=== PATIENT | female | born 1965 | race Caucasian/White ===

== ENCOUNTER → 2016-10-07 | Outpatient (CLI) | payer MEDICAID ==
--- NOTE | 2016-10-09 08:16 | MM ---
Reason for exam: screening (asymptomatic). Last mammogram was performed 1 year and 9 months ago. History: Taking estrogen for 1 year beginning at age 48. Physical Findings: A clinical breast exam by your physician is recommended on an annual basis and results should be correlated with mammographic findings. MG Screening Mammo w CAD Bilateral CC and MLO view(s) were taken. Prior study comparison: January 07, 2015, bilateral MG screening mammo w CAD. The breast tissue is heterogeneously dense. This may lower the sensitivity of mammography. No significant changes when compared with prior studies. ASSESSMENT: Negative, BI-RAD 1 RECOMMENDATION: Routine screening mammogram of both breasts in 1 year.
== END | disposition home or self-care (01) ==
LOC: RADMAMWWP 15:42
PROVIDERS: ATTEND Obstetrics & Gynecology
DX: Z12.31 Encounter for screening mammogram for malignant neoplasm of breast (principal)

== ENCOUNTER → 2017-01-08 | Outpatient (CLI) | payer MEDICAID ==
[2017-01-08 09:18] LABS: Basophils # (A) 0.1 k/uL (0-0.2); Basophils % (A) 1 %; CH 31.1; CHCM 32.9; Eosinophils # (A) 0.5 k/uL (0-0.7); Eosinophils % (A) 7 %; HCT 41.1 % (34.0-46.0); HGB 13.1 gm/dL (11.4-16.0); Luc # (Auto) 0.27; Luc % (Auto) 4; Lymphocytes # (A) 1.7 k/uL (1.0-4.8); Lymphocytes % (A) 27 %; MCH 30.3 pg (25.0-35.0); MCV 94.9 fL (80.0-100.0); Mean Platelet Volume 6.4; Monocytes # (A) 0.3 k/uL (0-1.0); Monocytes % (A) 5 %; Neutrophils # (A) 3.6 k/uL (1.3-7.7); Neutrophils % (A) 55 %; RBC 4.33 m/uL (3.80-5.40); RDW 12.7 % (11.5-15.5); WBC 6.4 k/uL (3.8-10.6); WBC (Perox) 6.89
[2017-01-08 09:34] LABS: ALT 35 U/L (9-52); AST 23 U/L (14-36); Alkaline Phosphatase 62 U/L (38-126); Anion Gap 10 mmol/L; Blood Urea Nitrogen 9 mg/dL (7-17); Calcium 9.4 mg/dL (8.4-10.2); Carbon Dioxide 26 mmol/L (22-30); Chloride 105 mmol/L (98-107); Cholesterol 175 mg/dL (<200); Glucose 94 mg/dL (74-99); HDL Cholesterol 65 mg/dL (40-60); Non-African American GFR(MDRD) >60 (>60 ml/min/1.73 sqM); Potassium 4.3 mmol/L (3.5-5.1); Sodium 141 mmol/L (137-145); Total Bilirubin 0.6 mg/dL (0.2-1.3); Total Protein 7.2 g/dL (6.3-8.2); Triglycerides 136 mg/dL (<150)
== END | disposition home or self-care (01) ==
LOC: LABWHC1 08:32
PROVIDERS: ATTEND Family Medicine
DX: Z00.00 Encounter for general adult medical examination without abnormal findings (principal)
CPT/HCPCS: 36415; 80053; 80061; 85025

== ENCOUNTER 2017-02-02 22:26 | Emergency (ER) | payer MEDICAID ==
[2017-02-02 22:34] VITALS: TEMP 98.2
[2017-02-02 23:24] LABS: Basophils # (A) 0.1 k/uL (0-0.2); Basophils % (A) 1 %; CH 31.4; CHCM 33.5; Eosinophils # (A) 0.5 k/uL (0-0.7); Eosinophils % (A) 6 %; HCT 37.9 % (34.0-46.0); HDW 2.21; HGB 12.5 gm/dL (11.4-16.0); Luc # (Auto) 0.28; Luc % (Auto) 3; Lymphocytes # (A) 1.6 k/uL (1.0-4.8); Lymphocytes % (A) 19 %; MCHC 32.9 g/dL (31.0-37.0); MCV 94.2 fL (80.0-100.0); Mean Platelet Volume 6.7; Monocytes # (A) 0.4 k/uL (0-1.0); Monocytes % (A) 5 %; Neutrophils # (A) 5.5 k/uL (1.3-7.7); Neutrophils % (A) 66 %; RBC 4.03 m/uL (3.80-5.40); RDW 12.7 % (11.5-15.5); WBC 8.5 k/uL (3.8-10.6); WBC (Perox) 9.15
--- NOTE | 2017-02-02 23:24 | ED ---
General Adult HPI - General Chief complaint: Allergic Reaction Stated complaint: med reaction/SOB Time Seen by Provider: 02/02/17 22:42 Source: patient, RN notes reviewed Mode of arrival: wheelchair Limitations: no limitations - History of Present Illness Initial comments: 51-year-old female presents emergency Department with chief complaint of concern for medication reaction. Patient states took Mucinex night. Patient states she's had some diarrhea since then that she's noticed some spasming of her bilateral legs. Patient states she was concerned due to the symptoms so she thought that she should be seen. Patient states that she took Mucinex due to the fact that she's been having this upper respiratory like symptoms for the past few weeks. Patient denies any fever chills with this. Patient states she' s never had a feeling this before. Patient states that she has had Mucinex in the past that did create some abnormal symptoms that she does not recall what. Patient states she was concerned due to her symptoms so she thought that she should be evaluated.Patient denies any recent fever, chills, shortness of breath , chest pain, back pain, abdominal pain, nausea vomiting, numbness or tingling, dysuria or hematuria, constipation, headaches or visual changes, or any other current symptoms. - Related Data Home Medications Medication Instructions Recorded Confirmed Estrogen,Con/M-Progest Acet 1 tab PO DAILY 02/24/16 02/02/17 [Prempro 0.3 mg-1.5 mg Tablet] Meloxicam 15 mg PO DAILY 02/24/16 02/02/17 Multivitamins, Thera [Multivitamin] 1 tab PO DAILY 02/24/16 02/02/17 buPROPion HCL [Wellbutrin XL] 300 mg PO DAILY 02/24/16 02/02/17 Albuterol Sulfate [Proair Hfa] 2 puff INHALATION RT-Q6H PRN 02/02/17 02/02/17 Budesonide/Formoterol Fumarate 2 puff INHALATION RT-BID 02/02/17 02/02/17 [Symbicort 160-4.5 Mcg Inhaler] Cetirizine HCl [Zyrtec] 10 mg PO DAILY 02/02/17 02/02/17 Cyanocobalamin [Vitamin B-12] 500 mcg PO DAILY 02/02/17 02/02/17 guaiFENesin [Mucinex] 1,200 mg PO DAILY PRN 02/02/17 02/02/17 Allergies Allergy/AdvReac Type Severity Reaction Status Date / Time adhesive tape Allergy Unknown Verified 02/02/17 23:06 chocolate flavor Allergy Unknown Verified 02/02/17 23:06 Fish Containing Products Allergy Unknown Verified 02/02/17 23:06 [Fish] Milk Containing Products Allergy Unknown Verified 02/02/17 23:06 [Dairy] peach Allergy Unknown Verified 02/02/17 23:06 gluten AdvReac Nausea & Verified 02/02/17 23:06 Vomiting Review of Systems ROS Statement: Those systems with pertinent positive or pertinent negative responses have been documented in the HPI. ROS Other: All systems not noted in ROS Statement are negative. Past Medical History Past Medical History: Asthma Additional Past Medical History / Comment(s): lyme disease History of Any Multi-Drug Resistant Organisms: None Reported Past Surgical History: No Surgical Hx Reported Past Psychological History: Depression Smoking Status: Former smoker Past Alcohol Use History: Rare Past Drug Use History: None Reported General Exam - General Exam Comments Initial Comments: General: The patient is awake and alert, in no distress, and does not appear acutely ill. Eye: Pupils are equal, round and reactive to light, extra-ocular movements are intact; there is normal conjunctiva bilaterally. No signs of icterus. Ears, nose, mouth and throat: There are moist mucous membranes. Neck: The neck is supple, there is no tenderness. Cardiovascular: There is a regular rate and rhythm. No murmur, rub or gallop is appreciated. Respiratory: Lungs are clear to auscultation, respirations are non-labored, breath sounds are equal. No wheezes, stridor, rales, or rhonchi. Gastrointestinal: Soft, non-distended, non-tender abdomen without masses or organomegaly noted. There is no rebound or guarding present. No CVA tenderness. Bowel sounds are unremarkable. Back: There is no tenderness to palpation in the midline. There is no obvious deformity. No rashes noted. Musculoskeletal: Normal ROM, no tenderness, There is no pedal edema. There is no calf tenderness or swelling. Sensation intact. Pulses equal bilaterally 2+. Neurological: CN II-XII intact, There are no obvious motor or sensory deficits. Coordination appears grossly intact. Speech is normal. Skin: Skin is warm and dry and no rashes or lesions are noted. Psychiatric: Cooperative, appropriate mood & affect, normal judgment. Limitations: no limitations Course Vital Signs 02/02/17 22:30 Temperature 98.2 F Pulse Rate 98 Respiratory 20 Rate Blood Pressure 138/68 O2 Sat by Pulse 98 Oximetry Medical Decision Making - Medical Decision Making 51-year-old female presents emergency department with a chief complaint of concern for medication reaction. At this time patient's lab work is reviewed. We did inform her that her sodium is mildly low as well as her phosphorus. We did discuss close follow-up for recheck of these. We discussed her symptoms are most likely due to the medication. We discussed return parameters all the questions. She stated that she understood and she is in agreement with the plan. At this time she'll be discharged home. - Lab Data Result diagrams: 02/02/17 23:10 02/02/17 23:10 Lab Results 02/02/17 02/02/17 Range/Units 23:10 23:10 WBC 8.5 (3.8-10.6) k/uL RBC 4.03 (3.80-5.40) m/uL Hgb 12.5 (11.4-16.0) gm/dL Hct 37.9 (34.0-46.0) % MCV 94.2 (80.0-100.0) fL MCH 31.0 (25.0-35.0) pg MCHC 32.9 (31.0-37.0) g/dL RDW 12.7 (11.5-15.5) % Plt Count 334 (150-450) k/uL Neutrophils % 66 % Lymphocytes % 19 % Monocytes % 5 % Eosinophils % 6 % Basophils % 1 % Neutrophils # 5.5 (1.3-7.7) k/uL Lymphocytes # 1.6 (1.0-4.8) k/uL Monocytes # 0.4 (0-1.0) k/uL Eosinophils # 0.5 (0-0.7) k/uL Basophils # 0.1 (0-0.2) k/uL Sodium 132 L (137-145) mmol/L Potassium 3.9 (3.5-5.1) mmol/L Chloride 103 (98-107) mmol/L Carbon Dioxide 21 L (22-30) mmol/L Anion Gap 8 mmol/L BUN 11 (7-17) mg/dL Creatinine 0.83 (0.52-1.04) mg/dL Est GFR (MDRD) Af Amer >60 (>60 ml/min/1.73 sqM) Est GFR (MDRD) Non-Af >60 (>60 ml/min/1.73 sqM) Glucose 117 H (74-99) mg/dL Calcium 9.1 (8.4-10.2) mg/dL Phosphorus 2.3 L (2.5-4.5) mg/dL Magnesium 1.9 (1.6-2.3) mg/dL Total Bilirubin 0.5 (0.2-1.3) mg/dL AST 26 (14-36) U/L ALT 31 (9-52) U/L Alkaline Phosphatase 72 (38-126) U/L Total Protein 6.9 (6.3-8.2) g/dL Albumin 4.3 (3.5-5.0) g/dL Disposition Clinical Impression: Medication reaction Disposition: HOME SELF-CARE Condition: Stable Instructions: Anaphylaxis (ED) Additional Instructions: Please use medication as discussed. Please follow up with family doctor if symptoms have not improved over the next two days. Please return to the emergency room if your symptoms increase or worsen or for any other concerns. Referrals: Tavares Avila MD [Primary Care Provider] - 1-2 days Time of Disposition: 00:06
[2017-02-02 23:31] LABS: ALT 31 U/L (9-52); AST 26 U/L (14-36); Alkaline Phosphatase 72 U/L (38-126); Anion Gap 8 mmol/L; Blood Urea Nitrogen 11 mg/dL (7-17); Calcium 9.1 mg/dL (8.4-10.2); Carbon Dioxide 21 mmol/L (22-30); Chloride 103 mmol/L (98-107); Glucose 117 mg/dL (74-99); Magnesium 1.9 mg/dL (1.6-2.3); Non-African American GFR(MDRD) >60 (>60 ml/min/1.73 sqM); Phosphorous 2.3 mg/dL (2.5-4.5); Potassium 3.9 mmol/L (3.5-5.1); Sodium 132 mmol/L (137-145); Total Bilirubin 0.5 mg/dL (0.2-1.3); Total Protein 6.9 g/dL (6.3-8.2)
--- NOTE | 2017-02-02 23:54 | XR ---
EXAM: XR Chest, 2 Views CLINICAL HISTORY: Reason: cough TECHNIQUE: Frontal and lateral views of the chest. COMPARISON: No relevant prior studies available. FINDINGS: Lungs: Unremarkable. No consolidation. Pleural space: Unremarkable. No pneumothorax. Heart: Unremarkable. No cardiomegaly. Mediastinum: Mediastinal contours are within normal limits with slight aortic ectasia. Bones/joints: Normal curvature of the thoracic spine may in part be positional. IMPRESSION: No acute intrathoracic abnormality or specific etiology of the patient's cough detected.
[2017-02-03 00:09] VITALS: BP 115/68; PULSE 81; RESP 16
== END 2017-02-03 00:09 | disposition home or self-care (01) ==
LOC: EC 22:26
DX: R19.7 Diarrhea, unspecified (principal); R25.2 Cramp and spasm; T48.4X5A Adverse effect of expectorants, initial encounter; J45.909 Unspecified asthma, uncomplicated; Z87.891 Personal history of nicotine dependence; Z79.1 Long term (current) use of non-steroidal anti-inflammatories (NSAID); Z79.51 Long term (current) use of inhaled steroids; Z79.899 Other long term (current) drug therapy; Z91.011 Allergy to milk products; Z91.013 Allergy to seafood; Z91.018 Allergy to other foods; Z91.048 Other nonmedicinal substance allergy status
CPT/HCPCS: 36415; 71020; 80053; 83735; 84100; 85025; 99283

== ENCOUNTER → 2017-12-07 | Outpatient (CLI) | payer MEDICAID ==
[2017-12-07 18:17] LABS: T4, Free (Free Thyroxine) 0.69 ng/dL (0.78-2.19)
[2017-12-08 01:00] LABS: Thyroid Peroxidase Antibodies 281.4 U/mL (0.0-60.0)
[2017-12-08 01:47] LABS: Gliadin AB IgA, Unit <0.2 U/mL
[2017-12-08 02:02] LABS: Shrimp IgE <0.10 kU/L
[2017-12-08 13:59] LABS: Immunoglobulin A 85.9 mg/dL (60.0-350.0)
== END | disposition home or self-care (01) ==
LOC: LABWHC1 17:11
PROVIDERS: ATTEND Allergy & Immunology
DX: L50.8 Other urticaria (principal); K52.9 Noninfective gastroenteritis and colitis, unspecified
CPT/HCPCS: 36415; 82784; 83516; 84439; 84443; 86003; 86376; 86800

== ENCOUNTER → 2018-01-04 | Outpatient (CLI) | payer MEDICAID ==
--- NOTE | 2018-01-05 09:10 | US ---
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 TECHNIQUE: Multiple sonographic images of the thyroid gland are obtained. FINDINGS: GLAND SIZE: Right Lobe: 4.4 x 1.8 x 1.6 cm Overall Parenchyma: heterogenous Left Lobe: 4.5 x 1.5 1.3 cm Overall Parenchyma: heterogeneous Isthmus Thickness: 0.2 cm No discrete nodule is seen. Mild diffuse hyperemia. Bilateral neck scanned, no evidence of lymphadenopathy. IMPRESSION: Heterogeneous glandular parenchyma with mild diffuse hyperemia suggests thyroiditis in keeping with t he patient's Sherwin's disease. No discrete nodule.
== END | disposition home or self-care (01) ==
LOC: RADUSMAIN 17:40
PROVIDERS: ATTEND Allergy & Immunology
DX: E07.89 Other specified disorders of thyroid (principal)
CPT/HCPCS: 76536

== ENCOUNTER 2018-03-10 21:19 | Emergency (ER) | payer MEDICAID ==
[2018-03-10 21:26] VITALS: BP 162/80; PULSE 100; RESP 18; TEMP 98.6
--- NOTE | 2018-03-10 23:07 | ED ---
Extremity Problem HPI - General Chief complaint: Extremity Problem,Nontraumatic Stated complaint: Hand Pain Time Seen by Provider: 03/10/18 22:26 Source: patient, RN notes reviewed Mode of arrival: ambulatory Limitations: no limitations - History of Present Illness Initial comments: This is a 52-year-old female with past medical history of Lyme disease, Sherwin's, asthma, carpal tunnel and fibromyalgia who presents today for cc of the veins on my right hand keep dilating. Pt states that she was in the bathtub this evening and noticed the hands on her right hand only were dilated. pt states that she then noticed that every time she put her hand down they would dilate. Earlier in the day she did admit to some tingling that felt identical to when she had had previous carpal tunnel flares. Pt denies erythema of the overylying skin, trauma to the right hand, headache, chest pain, shortness of breathe, aphasia, ataxia, abnormla gait or speech, facial droop. In addition patient denies any recent fever, chills, shortness of breath, chest pain, back pain, abdominal pain, nausea or vomiting, numbness or tingling, dysuria or hematuria, constipation or diarrhea, headaches or visual changes, or any other complaints. - Related Data Home Medications Medication Instructions Recorded Confirmed Estrogen,Con/M-Progest Acet 1 tab PO DAILY 02/24/16 03/10/18 [Prempro 0.3 mg-1.5 mg Tablet] Meloxicam 15 mg PO DAILY 02/24/16 03/10/18 Multivitamins, Thera [Multivitamin] 1 tab PO DAILY 02/24/16 03/10/18 buPROPion HCL [Wellbutrin XL] 300 mg PO DAILY 02/24/16 03/10/18 Albuterol Sulfate [Proair Hfa] 2 puff INHALATION RT-Q6H PRN 02/02/17 03/10/18 Budesonide/Formoterol Fumarate 2 puff INHALATION RT-BID 02/02/17 03/10/18 [Symbicort 160-4.5 Mcg Inhaler] Cetirizine HCl [Zyrtec] 10 mg PO DAILY 02/02/17 03/10/18 Cyanocobalamin [Vitamin B-12] 500 mcg PO DAILY 05/30/17 07/05/18 guaiFENesin [Mucinex] 1,200 mg PO DAILY PRN 02/02/17 03/10/18 Allergies Allergy/AdvReac Type Severity Reaction Status Date / Time adhesive tape Allergy Unknown Verified 03/10/18 21:26 chocolate flavor Allergy Unknown Verified 03/10/18 21:26 Fish Containing Products Allergy Unknown Verified 03/10/18 21:26 [Fish] Milk Containing Products Allergy Unknown Verified 03/10/18 21:26 [Dairy] peach Allergy Unknown Verified 03/10/18 21:26 gluten AdvReac Nausea & Verified 03/10/18 21:26 Vomiting Review of Systems ROS Statement: Those systems with pertinent positive or pertinent negative responses have been documented in the HPI. ROS Other: All systems not noted in ROS Statement are negative. Constitutional: Denies: fever, chills, weakness, weight change ENT: Denies: dental pain Respiratory: Denies: cough, dyspnea Cardiovascular: Denies: chest pain, palpitations Endocrine: Denies: fatigue Gastrointestinal: Denies: abdominal pain, nausea, vomiting, diarrhea, constipation Genitourinary: Denies: urgency, dysuria, frequency Musculoskeletal: Denies: back pain, joint swelling Skin: Reports: as per HPI. Denies: rash, lesions Past Medical History Past Medical History: Asthma Additional Past Medical History / Comment(s): lyme disease History of Any Multi-Drug Resistant Organisms: None Reported Past Surgical History: No Surgical Hx Reported Past Psychological History: Depression Smoking Status: Former smoker Past Alcohol Use History: Occasional Past Drug Use History: None Reported General Exam - General Exam Comments Initial Comments: General: The patient is awake and alert, in no distress, and does not appear acutely ill. Eye: Pupils are equal, round and reactive to light, extra-ocular movements are intact. No nystagmus. There is normal conjunctiva bilaterally. No signs of icterus. Ears, nose, mouth and throat: There are moist mucous membranes and no oral lesions. Cardiovascular: There is a regular rate and rhythm. No murmur, rub or gallop is appreciated. Respiratory: Lungs are clear to auscultation, respirations are non-labored, breath sounds are equal. No wheezes, stridor, rales, or rhonchi. Gastrointestinal: [Soft, non-distended, non-tender abdomen without masses or organomegaly noted. There is no rebound or guarding present. ] Musculoskeletal: No erythema, lesions, or masses of the dorsum of the b/l. Strength 5/5. Sensation intact. Pulses equal bilaterally 2+. Full ROM, sensation and muscle strength of the wrists b/l. Negative tinels. Normal examination of the UE b/l. There are dialted veins of the right hand, but this decreases with elevation. Neurological: A&O x 3. CN II-XII intact, There are no obvious motor or sensory deficits. Coordination appears grossly intact. Speech is normal. Skin: Skin is warm and dry and no rashes or lesions are noted. Psychiatric: Cooperative, appropriate mood & affect, normal judgment. Limitations: no limitations Course Vital Signs 03/10/18 21:24 Temperature 98.6 F Pulse Rate 100 Respiratory 18 Rate Blood Pressure 162/80 O2 Sat by Pulse 97 Oximetry Medical Decision Making - Medical Decision Making physical examination of the hands, and wrist b/l are WNL. Pt does have more vein dilation of the right dorsum than the left. However, there is no knots, overlying erythema or edema. negative tinels. Neurological examination and the remainder of the physical examination WNL. Pt will be discharged with reassurance and was encourage to f/u with her PCP if this does not resolve. Pt was encouraged to return to the emergency department if symptoms change or worsen. Case was discussed wtih Dr. Retana and pt was discharged in stable condition. Disposition Clinical Impression: Neuropathic pain of right hand Disposition: HOME SELF-CARE Condition: Good Is patient prescribed a controlled substance at d/c from ED?: No Referrals: Tavares Avila MD [Primary Care Provider] - 1-2 days Time of Disposition: 23:07
== END 2018-03-10 23:15 | disposition home or self-care (01) ==
LOC: EC 21:19
DX: G62.9 Polyneuropathy, unspecified (principal); M79.7 Fibromyalgia; J45.909 Unspecified asthma, uncomplicated; Z87.891 Personal history of nicotine dependence; Z79.3 Long term (current) use of hormonal contraceptives; Z79.1 Long term (current) use of non-steroidal anti-inflammatories (NSAID); Z79.899 Other long term (current) drug therapy; Z91.018 Allergy to other foods; Z91.013 Allergy to seafood; Z91.011 Allergy to milk products; Z91.048 Other nonmedicinal substance allergy status
CPT/HCPCS: 99283

== ENCOUNTER → 2018-04-18 | Outpatient (CLI) | payer MEDICAID ==
[2018-04-18 18:36] LABS: T4, Free (Free Thyroxine) 0.79 ng/dL (0.78-2.19)
== END | disposition home or self-care (01) ==
LOC: LABWHC1 17:14
PROVIDERS: ATTEND Family Medicine
DX: E06.3 Autoimmune thyroiditis (principal)
CPT/HCPCS: 36415; 84439; 84443; 84481

== ENCOUNTER → 2018-09-26 | Outpatient (CLI) | payer MEDICAID ==
--- NOTE | 2018-10-01 11:28 | MM ---
Reason for exam: screening (asymptomatic). Last mammogram was performed 2 years ago. History: Taking estrogen for 1 year beginning at age 48. MG Screening Mammo w CAD Bilateral CC and MLO view(s) were taken. Prior study comparison: October 07, 2016, bilateral MG screening mammo w CAD. January 07, 2015, bilateral MG screening mammo w CAD. The breast tissue is heterogeneously dense. This may lower the sensitivity of mammography. There is stable asymmetric breast tissue in the left upper breast. No discrete abnormality. ASSESSMENT: Negative, BI-RAD 1 RECOMMENDATION: Routine screening mammogram of both breasts in 1 year.
== END | disposition home or self-care (01) ==
LOC: RADMAMWWP 06:49
PROVIDERS: ATTEND Family Medicine
DX: Z12.31 Encounter for screening mammogram for malignant neoplasm of breast (principal)
CPT/HCPCS: 77067

== ENCOUNTER → 2019-03-25 | Outpatient (CLI) | payer MEDICAID ==
[2019-03-25 10:20] LABS: Amorphous Sediment,Urine Few /hpf; Appearance,Urine Cloudy (Clear); Bacteria,Urine Rare /hpf; Bilirubin,Urine Negative (Negative); Blood,Urine Negative (Negative); Color,Urine Yellow; Glucose,Urine (UA) Negative (Negative); Ketones,Urine Negative (Negative); Leukocyte Esterase,Urine Large (Negative); Mucus,Urine Few /hpf; Nitrite,Urine Negative (Negative); PH, Urine 7.5 (5.0-8.0); Protein,Urine Trace (Negative); RBC,Urine 1 /hpf (0-5); Specific Gravity,Urine 1.022 (1.001-1.035); Squamous Epithelial Cell,Urine 13 /hpf (0-4); Urobilinogen,Urine <2.0 mg/dL (<2.0); WBC,Urine 43 /hpf (0-5)
[2019-03-25 10:21] LABS: HCT 40.8 % (34.0-46.0); HGB 13.5 gm/dL (11.4-16.0); MCH 30.6 pg (25.0-35.0); MCHC 33.1 g/dL (31.0-37.0); Mean Platelet Volume 7.2; Platelet Count 360 k/uL (150-450); RBC 4.43 m/uL (3.80-5.40); RDW 13.2 % (11.5-15.5)
[2019-03-25 10:22] LABS: MCV 92.3 fL (80.0-100.0)
[2019-03-25 18:57] LABS: African American GFR (CKD) 84.6 (60.0-200.0); Albumin 4.5 g/dL (3.80-4.90); Albumin/Globulin Ratio 2.65 (1.60-3.17); Anion Gap 8.3 mmol/L (4.00-12.00); BUN/Creat Ratio 14.44 Ratio (12.00-20.00); Calcium 9.4 mg/dL (8.7-10.3); Carbon Dioxide 23.7 mmol/L (21.6-31.8); Globulin 1.7 g/dL (1.6-3.3); LDL Cholesterol,Calculated 75.2 mg/dL (0.0-131.0); Potassium 4.3 mmol/L (3.5-5.5); Total Bilirubin 0.5 mg/dL (0.3-1.2); Total Protein 6.2 g/dL (6.2-8.2); VLDL Calculation 32.8 mg/dL (5.00-40.00)
[2019-03-25 19:05] LABS: T4, Free (Free Thyroxine) 0.9 ng/dL (0.80-1.80)
== END | disposition home or self-care (01) ==
LOC: LABWHC1 09:48
PROVIDERS: ATTEND Family Medicine
DX: Z00.00 Encounter for general adult medical examination without abnormal findings (principal); E03.9 Hypothyroidism, unspecified
CPT/HCPCS: 36415; 80053; 80061; 81001; 84439; 84443; 84481; 85027

== ENCOUNTER → 2020-03-08 | Outpatient (CLI) | payer OTHER ==
[2020-03-08 10:33] LABS: HCT 40.5 % (34.0-46.0); MCH 30.9 pg (25.0-35.0); MCHC 32.1 g/dL (31.0-37.0); MCV 96.1 fL (80.0-100.0); Platelet Count 291 k/uL (150-450); RBC 4.21 m/uL (3.80-5.40); RDW 12.9 % (11.5-15.5); WBC 7.2 k/uL (3.8-10.6)
[2020-03-08 15:36] LABS: African American GFR (CKD) 96.9 (60.0-200.0); Albumin 4.2 g/dL (3.80-4.90); Albumin/Globulin Ratio 2.47 (1.60-3.17); Anion Gap 5.6 mmol/L (4.00-12.00); BUN/Creat Ratio 13.75 Ratio (12.00-20.00); Carbon Dioxide 25.4 mmol/L (21.6-31.8); Chol/HDL Ratio 2.54; Globulin 1.7 g/dL (1.6-3.3); LDL Cholesterol,Calculated 69.2 mg/dL (0.0-131.0); Non-African American GFR(CKD) 83.6 (60.0-200.0); Potassium 4.3 mmol/L (3.5-5.5); Total Bilirubin 0.6 mg/dL (0.2-1.2); Total Protein 5.9 g/dL (6.2-8.2); VLDL Calculation 27.8 mg/dL (5.00-40.00)
== END | disposition home or self-care (01) ==
LOC: LABWHC1 08:54
PROVIDERS: ATTEND Family Medicine
DX: Z00.00 Encounter for general adult medical examination without abnormal findings (principal)
CPT/HCPCS: 36415; 80053; 80061; 85027

== ENCOUNTER → 2020-04-30 | Outpatient (CLI) | payer OTHER | END | disposition home or self-care (01) | LOC: LABWHC1 07:00 | PROVIDERS: ATTEND Family Medicine | DX: E06.3 Autoimmune thyroiditis (principal) | CPT/HCPCS: 36415; 84443; 84481 ==

== ENCOUNTER → 2021-01-02 | Outpatient (CLI) | payer OTHER ==
[2021-01-02 20:55] LABS: Albumin 4.9 g/dL (3.80-4.90); Albumin/Globulin Ratio 2.88 (1.60-3.17); Bilirubin, Conjugated 0.2 mg/dL (0.20-0.40); Bilirubin,Unconjugated 0.4 mg/dL; Chol/HDL Ratio 3.02; Globulin 1.7 g/dL (1.6-3.3); LDL Cholesterol,Calculated 85.2 mg/dL (0.0-131.0); Total Bilirubin 0.6 mg/dL (0.3-1.2); Total Protein 6.6 g/dL (6.2-8.2); VLDL Calculation 25.8 mg/dL (5.00-40.00)
== END | disposition home or self-care (01) ==
LOC: LABWHC1 06:53
PROVIDERS: ATTEND Internal Medicine Cardiovascular Disease
DX: E78.2 Mixed hyperlipidemia (principal); Z82.49 Family history of ischemic heart disease and other diseases of the circulatory system
CPT/HCPCS: 36415; 80061; 80076

== ENCOUNTER 2021-01-05 22:10 | Emergency (ER) | payer OTHER ==
--- NOTE | 2021-01-05 22:48 | ED ---
Arrhythmia/Palpitations HPI - General Stated Complaint: AFib Time Seen by Provider: 01/05/21 22:47 Source: patient - History of Present Illness Initial Comments: patient is a 55-year-old woman who presents with days of intermittent palpitations and anxiety associated. Patient has had some workup already, including reportedly having a stress test and a Holter monitor. Patient's symptoms recurred tonight. She notes that her heart will race, but she has not had meño chest pain. No anginal symptoms. She does note that she is under a lot of stress at home. MD Complaint: rapid heart beat -: days(s) Context: occurred during rest Associated Symptoms: anxiety - Related Data Home Medications Medication Instructions Recorded Confirmed Estrogen,Con/M-Progest Acet 1 tab PO DAILY 02/24/16 03/10/18 [Prempro 0.3 mg-1.5 mg Tablet] Meloxicam 15 mg PO DAILY 02/24/16 03/10/18 Multivitamins, Thera [Multivitamin] 1 tab PO DAILY 02/24/16 03/10/18 buPROPion HCL [Wellbutrin XL] 300 mg PO DAILY 02/24/16 03/10/18 Albuterol Sulfate [Proair Hfa] 2 puff INHALATION RT-Q6H PRN 02/02/17 03/10/18 Budesonide/Formoterol Fumarate 2 puff INHALATION RT-BID 02/02/17 03/10/18 [Symbicort 160-4.5 Mcg Inhaler] Cetirizine HCl [Zyrtec] 10 mg PO DAILY 02/02/17 03/10/18 Cyanocobalamin [Vitamin B-12] 500 mcg PO DAILY 02/02/17 03/10/18 guaiFENesin [Mucinex] 1,200 mg PO DAILY PRN 02/02/17 03/10/18 Previous Rx's Medication Instructions Recorded Metoprolol Tartrate [Lopressor] 12.5 mg PO BID #30 dose 01/06/21 Allergies Allergy/AdvReac Type Severity Reaction Status Date / Time adhesive tape Allergy Unknown Verified 01/05/21 22:51 chocolate flavor Allergy Unknown Verified 01/05/21 22:51 Fish Containing Products Allergy Unknown Verified 01/05/21 22:51 [Fish] Milk Containing Products Allergy Unknown Verified 01/05/21 22:51 [Dairy] peach Allergy Unknown Verified 01/05/21 22:51 gluten AdvReac Nausea & Verified 01/05/21 22:51 Vomiting Review of Systems ROS Statement: Those systems with pertinent positive or pertinent negative responses have been documented in the HPI. ROS Other: All systems not noted in ROS Statement are negative. Constitutional: Denies: fever, chills Respiratory: Denies: cough, dyspnea Cardiovascular: Reports: palpitations. Denies: chest pain, edema, syncope Gastrointestinal: Denies: abdominal pain, nausea, vomiting Genitourinary: Denies: dysuria, hematuria Musculoskeletal: Denies: back pain Skin: Denies: rash Neurological: Denies: headache, weakness, numbness Past Medical History Past Medical History: Asthma Additional Past Medical History / Comment(s): lyme disease History of Any Multi-Drug Resistant Organisms: None Reported Past Surgical History: No Surgical Hx Reported Past Psychological History: Depression Past Alcohol Use History: Occasional Past Drug Use History: None Reported General Exam General appearance: alert, in no apparent distress Head exam: Present: atraumatic, normocephalic Eye exam: Present: normal appearance. Absent: scleral icterus, conjunctival injection Neck exam: Present: normal inspection, full ROM Respiratory exam: Present: normal lung sounds bilaterally. Absent: respiratory distress, wheezes, rales, rhonchi, stridor Cardiovascular Exam: Present: regular rate, normal rhythm, normal heart sounds. Absent: systolic murmur, diastolic murmur, rubs, gallop GI/Abdominal exam: Present: soft. Absent: distended, tenderness, guarding, rebound, rigid, mass Extremities exam: Present: normal inspection, normal capillary refill. Absent: pedal edema, calf tenderness Back exam: Present: normal inspection Neurological exam: Present: alert Psychiatric exam: Present: anxious Skin exam: Present: warm, dry, intact, normal color. Absent: rash Course Vital Signs 01/05/21 01/06/21 22:54 00:02 Temperature 98.3 F Pulse Rate 80 90 Respiratory 18 16 Rate Blood Pressure 131/89 145/93 O2 Sat by Pulse 98 98 Oximetry EKG Findings - EKG Results: EKG: interpreted by ERMD, sinus rhythm (with premature supraventricular com plexes, rate 83 bpm), normal axis, normal QRS - Blocks, [place], Hypertrophy, ST Abn: Repolarization changes or abnormalities: nonspecific abnormality, ST segment, and/or T wave Medical Decision Making - Lab Data Result diagrams: 01/05/21 22:49 01/05/21 22:49 Lab Results 01/05/21 01/05/21 01/05/21 Range/Units 22:49 22:49 22:49 WBC 8.7 (3.8-10.6) k/uL RBC 4.49 (3.80-5.40) m/uL Hgb 14.0 (11.4-16.0) gm/dL Hct 41.0 (34.0-46.0) % MCV 91.2 (80.0-100.0) fL MCH 31.3 (25.0-35.0) pg MCHC 34.3 (31.0-37.0) g/dL RDW 12.6 (11.5-15.5) % Plt Count 356 (150-450) k/uL MPV 7.1 Neutrophils % 64 % Lymphocytes % 24 % Monocytes % 8 % Eosinophils % 2 % Basophils % 1 % Neutrophils # 5.6 (1.3-7.7) k/uL Lymphocytes # 2.1 (1.0-4.8) k/uL Monocytes # 0.7 (0-1.0) k/uL Eosinophils # 0.2 (0-0.7) k/uL Basophils # 0.1 (0-0.2) k/uL PT 10.3 (9.0-12.0) sec INR 1.0 (<1.2) APTT 22.5 (22.0-30.0) sec Sodium 136 L (137-145) mmol/L Potassium 4.1 (3.5-5.1) mmol/L Chloride 105 (98-107) mmol/L Carbon Dioxide 21 L (22-30) mmol/L Anion Gap 10 mmol/L BUN 12 (7-17) mg/dL Creatinine 0.72 (0.52-1.04) mg/dL Est GFR (CKD-EPI)AfAm >90 (>60 ml/min/1.73 sqM) Est GFR (CKD-EPI)NonAf >90 (>60 ml/min/1.73 sqM) Glucose 120 H (74-99) mg/dL Calcium 9.7 (8.4-10.2) mg/dL Magnesium 2.1 (1.6-2.3) mg/dL Total Bilirubin 0.7 (0.2-1.3) mg/dL AST 30 (14-36) U/L ALT 16 (4-34) U/L Alkaline Phosphatase 70 (38-126) U/L Troponin I (0.000-0.034) ng/mL Total Protein 7.2 (6.3-8.2) g/dL Albumin 4.6 (3.5-5.0) g/dL TSH 4.030 (0.465-4.680) mIU/L 01/05/21 Range/Units 22:49 WBC (3.8-10.6) k/uL RBC (3.80-5.40) m/uL Hgb (11.4-16.0) gm/dL Hct (34.0-46.0) % MCV (80.0-100.0) fL MCH (25.0-35.0) pg MCHC (31.0-37.0) g/dL RDW (11.5-15.5) % Plt Count (150-450) k/uL MPV Neutrophils % % Lymphocytes % % Monocytes % % Eosinophils % % Basophils % % Neutrophils # (1.3-7.7) k/uL Lymphocytes # (1.0-4.8) k/uL Monocytes # (0-1.0) k/uL Eosinophils # (0-0.7) k/uL Basophils # (0-0.2) k/uL PT (9.0-12.0) sec INR (<1.2) APTT (22.0-30.0) sec Sodium (137-145) mmol/L Potassium (3.5-5.1) mmol/L Chloride (98-107) mmol/L Carbon Dioxide (22-30) mmol/L Anion Gap mmol/L BUN (7-17) mg/dL Creatinine (0.52-1.04) mg/dL Est GFR (CKD-EPI)AfAm (>60 ml/min/1.73 sqM) Est GFR (CKD-EPI)NonAf (>60 ml/min/1.73 sqM) Glucose (74-99) mg/dL Calcium (8.4-10.2) mg/dL Magnesium (1.6-2.3) mg/dL Total Bilirubin (0.2-1.3) mg/dL AST (14-36) U/L ALT (4-34) U/L Alkaline Phosphatase (38-126) U/L Troponin I <0.012 (0.000-0.034) ng/mL Total Protein (6.3-8.2) g/dL Albumin (3.5-5.0) g/dL TSH (0.465-4.680) mIU/L Disposition Clinical Impression: Palpitations Disposition: HOME SELF-CARE Condition: Good Instructions (If sedation given, give patient instructions): Heart Palpitations (ED) Prescriptions: Metoprolol Tartrate [Lopressor] 12.5 mg PO BID #30 dose Is patient prescribed a controlled substance at d/c from ED?: No Referrals: Tavares Avila MD [Primary Care Provider] - 1-2 days
[2021-01-05 22:58] VITALS: TEMP 98.3
[2021-01-05 23:05] LABS: Basophils # (A) 0.1 k/uL (0-0.2); Basophils % (A) 1 %; Eosinophils # (A) 0.2 k/uL (0-0.7); Eosinophils % (A) 2 %; Lymphocytes # (A) 2.1 k/uL (1.0-4.8); Lymphocytes % (A) 24 %; MCH 31.3 pg (25.0-35.0); MCHC 34.3 g/dL (31.0-37.0); MCV 91.2 fL (80.0-100.0); Mean Platelet Volume 7.1; Monocytes # (A) 0.7 k/uL (0-1.0); Monocytes % (A) 8 %; Neutrophils # (A) 5.6 k/uL (1.3-7.7); Neutrophils % (A) 64 %; Platelet Count 356 k/uL (150-450); RBC 4.49 m/uL (3.80-5.40); RDW 12.6 % (11.5-15.5); WBC 8.7 k/uL (3.8-10.6)
[2021-01-05 23:22] LABS: Partial Thromboplastin Time 22.5 sec (22.0-30.0); Prothrombin Time 10.3 sec (9.0-12.0)
[2021-01-05 23:26] LABS: ALT 16 U/L (4-34); African American GFR (CKD) >90 (>60 ml/min/1.73 sqM); Anion Gap 10 mmol/L; Blood Urea Nitrogen 12 mg/dL (7-17); Calcium 9.7 mg/dL (8.4-10.2); Carbon Dioxide 21 mmol/L (22-30); Chloride 105 mmol/L (98-107); Glucose 120 mg/dL (74-99); Non-African American GFR(CKD) >90 (>60 ml/min/1.73 sqM); Sodium 136 mmol/L (137-145); Total Bilirubin 0.7 mg/dL (0.2-1.3)
--- NOTE | 2021-01-05 23:47 | XR ---
EXAMINATION TYPE: XR chest 2V DATE OF EXAM: 01/05/2021 COMPARISON: 02/02/2017 HISTORY: Dysrhythmia There is no heart failure nor confluent pneumonic infiltrate. Costophrenic angles are clear. Heart s ize is normal. There are chest leads. Bony thorax is intact. IMPRESSION: No active cardiopulmonary disease. No change.
[2021-01-06 00:03] VITALS: BP 145/93; RESP 16
[2021-01-06 00:07] LABS: AST 30 U/L (14-36); Albumin 4.6 g/dL (3.5-5.0); Alkaline Phosphatase 70 U/L (38-126); Magnesium 2.1 mg/dL (1.6-2.3); Potassium 4.1 mmol/L (3.5-5.1); Total Protein 7.2 g/dL (6.3-8.2)
[2021-01-06 00:58] VITALS: PULSE 78
== END 2021-01-06 01:31 | disposition home or self-care (01) ==
LOC: EC 22:10
DX: R00.2 Palpitations (principal); F32.9 Major depressive disorder, single episode, unspecified; I48.91 Unspecified atrial fibrillation; J45.909 Unspecified asthma, uncomplicated
CPT/HCPCS: 36415; 71046; 80053; 83735; 84443; 84484; 85025; 85610; 85730; 93005; 99285

== ENCOUNTER → 2021-01-30 | Outpatient (CLI) | payer OTHER ==
--- NOTE | 2021-01-31 07:47 | MM ---
Reason for exam: screening (asymptomatic). Last mammogram was performed 2 years and 4 months ago. History: Taking estrogen for 1 year beginning at age 48. Physical Findings: A clinical breast exam by your physician is recommended on an annual basis and results should be correlated with mammographic findings. MG Screening Mammo w CAD Bilateral CC and MLO view(s) were taken. Prior study comparison: September 26, 2018, bilateral MG screening mammo w CAD. October 07, 2016, bilateral MG screening mammo w CAD. The breast tissue is heterogeneously dense. This may lower the sensitivity of mammography. No significant changes when compared with prior studies. ASSESSMENT: Benign, BI-RAD 2 RECOMMENDATION: Routine screening mammogram of both breasts in 1 year.
== END | disposition home or self-care (01) ==
LOC: RADMAMWWP 09:09
PROVIDERS: ATTEND Family Medicine
DX: Z12.39 Encounter for other screening for malignant neoplasm of breast (principal)
CPT/HCPCS: 77067

== ENCOUNTER → 2021-07-11 | Outpatient (CLI) | payer OTHER ==
[2021-07-11 11:07] VITALS: BP 122/82; PULSE 67; RESP 16; TEMP 98.3
--- NOTE | 2021-07-11 11:42 | P.GSHP ---
History of Present Illness H&P Date: 07/11/21 Chief Complaint: left breast discharge Muna is a 55 year old white female seen in consultation for Dr. Avila regarding left nipple discharge. Abut one month ago she felt perimenopausal symptoms and noted left nipple discharge at that time. She had a bilateral mammogram on 01-30-21 which was benign BIRAD 2. She has not had any bloody nipple discharge. She has no right nipple discharge. She has had the intermittent left nipple discharge for many years. She is not complaining of any lumps masses or nodules in her breast. The last time she had nipple discharge was approximately 1 month ago it does happen spontaneously at times, this seems yellow to the patient. She notices it on her clothes. She has never had any breast surgery. She takes prempro and has been on that for 10 years. Caffeine: 2 cups/day down from 5 cups/day in December 2020 nicotine: none; stopped 20 years ago, used to smoke 1/PPD for 15 years; father heavy smoker as she was growing up BCP: 1 year; prempro 10 years chocolate: weekly Family history: Mother: Pancreatic cancer Father: Lung cancer he was a smoker Brother: Testicular cancer Hormonal History: menarche: 15 , breast fed: no; age at : 20 menopause: 50 prempro: present user 10 years; BCP: 1 year many years ago Surgical History: none Medical History: [place] Disease 32 years ago asthma Sherwin's thyroiditis Fibromyalgia depression/anxiety scolioses Social History: smoke: former alcohol: occasional drugs: none - Constitutional Constitutional: Denies chills, Denies fever - EENT Eyes: denies blurred vision, denies pain Ears: bilateral: tinnitus, deny: decreased hearing Ears, nose, mouth and throat: Denies headache, Denies sore throat - Breasts Breasts: bilateral: as per HPI - Cardiovascular Cardiovascular: Denies chest pain, Denies shortness of breath - Respiratory Respiratory: Reports as per HPI - Gastrointestinal Gastrointestinal: Denies abdominal pain, Denies diarrhea, Denies nausea, Denies vomiting - Genitourinary (Female) Genitourinary: Denies dysuria, Denies hematuria - Menstruation Menstruation: Reports postmenopausal - Musculoskeletal Musculoskeletal: Denies myalgias - Integumentary Comment: chronic hives - Neurological Neurological: Denies numbness, Denies weakness - Psychiatric Psychiatric: Reports as per HPI, Reports anxiety, Reports depression - Endocrine Endocrine: Reports as per HPI - Hematologic/Lymphatic Comment: none - Allergic/Immunologic Allergic/Immunologic: Reports seasonal allergies Past Medical History Past Medical History: Asthma Additional Past Medical History / Comment(s): lyme disease History of Any Multi-Drug Resistant Organisms: None Reported Past Surgical History: No Surgical Hx Reported Past Psychological History: Depression Smoking Status: Never smoker Past Alcohol Use History: Occasional Past Drug Use History: None Reported Medications and Allergies Home Medications Medication Instructions Recorded Confirmed Type Estrogen,Con/M-Progest Acet 1 tab PO DAILY 02/24/16 07/11/21 History [Prempro 0.3 mg-1.5 mg Tablet] Multivitamins, Thera [Multivitamin] 1 tab PO DAILY 02/24/16 07/11/21 History Metoprolol Tartrate [Lopressor] 12.5 mg PO BID #30 dose 01/06/21 07/11/21 Rx Cetirizine HCl [Zyrtec] 10 mg PO DAILY 07/11/21 07/11/21 History HYDROcodone/APAP 5-325MG [[place] 1 tab PO Q6HR PRN 07/11/21 07/11/21 History 5-325] Levothyroxine Sodium [Synthroid] 25 mcg PO DAILY 07/11/21 07/11/21 History Meloxicam [Mobic] 7.5 mg PO DAILY 07/11/21 07/11/21 History busPIRone HCL [Buspar] 7.5 mg PO DAILY 07/11/21 07/11/21 History Allergies Allergy/AdvReac Type Severity Reaction Status Date / Time adhesive tape Allergy Unknown Verified 07/11/21 10:59 chocolate flavor Allergy Unknown Verified 07/11/21 10:59 Fish Containing Products Allergy Unknown Verified 07/11/21 10:59 [Fish] Milk Containing Products Allergy Unknown Verified 07/11/21 10:59 [Dairy] peach Allergy Unknown Verified 07/11/21 10:59 gluten AdvReac Nausea & Verified 07/11/21 10:59 Vomiting levalbuterol [From Xopenex] AdvReac Confusion Unverified 07/11/21 10:59 Surgical - Exam Vital Signs Temp Pulse Resp BP Pulse Ox 98.3 F 67 16 122/82 99 07/11/21 11:04 07/11/21 11:04 07/11/21 11:04 07/11/21 11:04 07/11/21 11:04 BMI 27.9 - General no distress - Eyes normal ocular movement - ENT normal nares - Neck trachea midline - Respiratory normal respiratory effort, clear to auscultation - Cardiovascular Rhythm: regular Heart Sounds: normal: S1, S2 - Abdomen Abdomen: soft - Integumentary normal turgor - Neurologic no disoriented, no combative - Musculoskeletal normal gait - Psychiatric oriented to time, oriented to person, oriented to place, speech is normal, memory intact Breast Exam: BRA: 36D inspection: Left breast larger than right breast, lateral grade 3 ptosis Palpation: Right breast: Multiple positional exam fibrocystic changes no dominant masses or nodules of concern Right axilla: No adenopathy of concern Left breast: Multiple positional exam fibrocystic changes no dominant masses or nodules of concern no nipple discharge on either side at this time Left axilla: No adenopathy of concern Results Bilateral mammogram [id number] benign Assessment and Plan Assessment: Impression: 1. Asymmetry of the breast 2. Fibrocystic breast changes 3. Bilateral Bio-Rad to mammogram from [id number] 4. Left breast nipple discharge chronic intermittent for many years nonbloody appears fibrocystic 5. Patient on Prempro 6. 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 Plan: 1. Patient is going to try to decrease Prempro 2. Repeat bilateral mammogram January 25 3. Follow-up after bilateral mammogram 4. Patient understands that if the nipple discharge becomes bloody or more frequent and is spontaneous then she will call us CC: Dr. Avila
== END ==
LOC: WWCWWP 10:49
PROVIDERS: ATTEND Surgery
DX: Z53.9 Procedure and treatment not carried out, unspecified reason (principal)

== ENCOUNTER → 2023-02-02 | Outpatient (CLI) | payer BC ==
--- NOTE | 2023-02-03 19:10 | MM ---
Reason for Exam: Screening (asymptomatic). Last mammogram was performed 2 year(s) and 0 month(s) ago. Patient History: Menarche at age 14. First Full-Term at age 20. Postmenopausal. Currently using Estrogen, beginning at age 48 for 3 years. Risk Values: Cecille 5 year model risk: 1.0%. NCI Lifetime model risk: 6.5%. Prior Study Comparison: 10/07/2016 Bilateral Screening Mammogram, [facility]. 09/26/2018 Bilateral Screening Mammogram, [facility]. 01/30/2021 Bilateral Screening Mammogram, [facility]. Tissue Density: There are scattered fibroglandular densities. Findings: Analyzed By CAD. Chronic nodularity lower quadrant left breast. There is no suspicious group of microcalcifications or new suspicious mass in either breast. Overall Assessment: Benign, BI-RAD 2 Management: Screening Mammogram of both breasts in 1 year. . Patient should continue monthly self-breast exams. A clinical breast exam by your physician is recommended on an annual basis. This exam should not preclude additional follow-up of suspicious palpable abnormalities. Note on Cecille scores and lifetime risk: 1. A Cecille score greater than 3% is considered moderate risk. If this is the case, consider specialist referral to assess eligibility for a risk reducing agent. 2. If overall lifetime risk for the development of breast cancer is 20% or higher, the patient may qualify for future screening with alternating mammogram and breast MRI. Electronically signed and approved by: Iris Booker M.D. Radiologist
== END | disposition home or self-care (01) ==
LOC: RADMAMWWP 16:34
PROVIDERS: ATTEND Family Medicine
DX: Z12.31 Encounter for screening mammogram for malignant neoplasm of breast (principal); Z78.0 Asymptomatic menopausal state
CPT/HCPCS: 77067

== ENCOUNTER → 2024-12-27 | Outpatient (CLI) | payer BC ==
--- NOTE | 2024-12-27 12:44 | MM ---
Reason for Exam: Screening (asymptomatic). Last mammogram was performed 1 year(s) and 11 month(s) ago. Patient History: Menarche at age 14. First Full-Term at age 20. Postmenopausal. Currently using Estrogen, beginning at age 48 for 3 years. Risk Values: Cecille 5 year model risk: 1.1%. NCI Lifetime model risk: 6.2%. Prior Study Comparison: 09/26/2018 Bilateral Screening Mammogram, [facility]. 01/30/2021 Bilateral Screening Mammogram, [facility]. 02/02/2023 Bilateral MG screening mammo w CAD, [facility]. Tissue Density: The breasts are heterogeneously dense, which may obscure small masses. Findings: Analyzed By CAD. There is no suspicious group of microcalcifications or new suspicious mass in either breast. Overall Assessment: Benign, BI-RAD 2 Management: Screening Mammogram of both breasts in 1 year. . Patient should continue monthly self-breast exams. A clinical breast exam by your physician is recommended on an annual basis. This exam should not preclude additional follow-up of suspicious palpable abnormalities. Note on Cecille scores and lifetime risk: 1. A Cecille score greater than 3% is considered moderate risk. If this is the case, consider specialist referral to assess eligibility for a risk reducing agent. 2. If overall lifetime risk for the development of breast cancer is 20% or higher, the patient may qualify for future screening with alternating mammogram and breast MRI. [facility], , 12/27/2024 12:41 PM. Electronically signed and approved by: Tarun Emerson M.D. Radiologis
== END | disposition home or self-care (01) ==
LOC: RADMAMWWP 12:30
PROVIDERS: ATTEND Family Medicine
DX: Z12.31 Encounter for screening mammogram for malignant neoplasm of breast (principal); R92.333 Mammographic heterogeneous density, bilateral breasts; Z78.0 Asymptomatic menopausal state
CPT/HCPCS: 77063; 77067